=== PATIENT | female | born 1955 | race Caucasian/White ===

== ENCOUNTER 2016-09-19 08:17 | Inpatient (IN) | payer BC, SELFPAY ==
[~2016-09-19 08:17] MED LIST: CHANTIX1 M1 PO; HYDROCHLOROTHIA25 M1 PO; IBUPROFEN200 M2 PO; LOPREEZA 0.5 M1 EACH PO; MULTIPLE VITAM1 EAC3 PO; NORVASC5 M2 PO; OMEPRAZOLE20 M3 PO; PAXIL40 M1 PO; TYLENOL325 M2 PO
[2016-09-20 05:55] LABS: ANION GAP 11 mmol/L (0-20); BLOOD UREA NITROGEN 9 mg/dl (6-24); CALCIUM 7.7 mg/dl (8.5-10.5); CARBON DIOXIDE-VENOUS 26 mmol/L (22-32); CHLORIDE 105 mmol/l (96-110); CREATININE 0.66 mg/dl (0.50-1.10); GLUCOSE 112 mg/dL (70-110); POTASSIUM 3.6 mmol/L (3.7-5.1); SODIUM 138 mmol/L (135-145); eGFR VALUE FOR BLACK >90 mL/Min
[2016-09-20] MEDS ORDERED: NORCO 5-325 TA1 EACH PO (13:15)
[2016-09-20] MEDS ORDERED: SENNA-S TABLET1 EAC3 PO (13:16)
[2016-09-20] MEDS ORDERED: ROBAXIN-750750 M1 PO (13:17)
[2016-09-23] MEDS ORDERED: NEURONTIN300 M1 PO (09:28)
== END 2016-09-23 17:00 | DRG 460 ==
LOC: SHSB 08:17 → ORW 10:56 → PACU 14:21 → 5EA 16:00
PROVIDERS: ADMIT Neurological Surgery
PROC: 0SG0071 Fusion of Lumbar Vertebral Joint with Autologous Tissue Substitute, Posterior Approach, Posterior Column, Open Approach (ICD-10-PCS; principal; 2016-09-19)
DX: M48.06 Spinal stenosis, lumbar region (principal); Z68.41 Body mass index [BMI] 40.0-44.9, adult; I10 Essential (primary) hypertension; M54.16 Radiculopathy, lumbar region; F32.9 Major depressive disorder, single episode, unspecified; E66.9 Obesity, unspecified
CPT/HCPCS: C1713; J0690; J1100; J1170; J2800; J3010